=== PATIENT | male | born 1995 | race Caucasian/White ===

== ENCOUNTER 2016-11-25 06:11 | Emergency (ER) | payer OTHER ==
[2016-11-25] MEDS ORDERED: LIDOCAINE-MPF 1% 5 ML VIAL ONE (07:03)
[2016-11-25] MEDS ORDERED: LIDOCAINE 1% 50 ML MDV SUBQ STA (07:03)
== END 2016-11-25 08:08 | disposition home or self-care (01) ==
DX: S61.012A Laceration without foreign body of left thumb without damage to nail, initial encounter (principal); W26.0XXA Contact with knife, initial encounter; Y93.89 Activity, other specified; Y92.009 Unspecified place in unspecified non-institutional (private) residence as the place of occurrence of the external cause; Y99.8 Other external cause status